=== PATIENT | female | born 1970 | race Caucasian/White ===

== ENCOUNTER 2023-12-28 22:25 | Emergency (ER) | payer OTHER ==
[~2023-12-28] VITALS: Ht 157.5 cm; Wt 51.0 kg
[~2023-12-28 22:25] MED LIST: BACTRIM DS1 TAB PO; LORTAB5 PO
[2023-12-28] MEDS ORDERED: METOPROLOL TARTRATE 25 MG/TAB PO ONE (22:50)
[2023-12-28 22:58] VITALS: BP 124/81
[2023-12-28 22:59] LABS: BASO% 0.5 % (0-3); EOS% 2.1 % (0-8); LYMPH% 37.8 % (15-41); MEAN CELL VOLUME 87.9 fL CALC (80.0-100.0); MEAN CORPUSCULAR HGB 28.6 pG CALC (26.0-32.0); MEAN CORPUSCULAR HGB CONC 32.5 g/dL CAL (32.0-36.0); MONO% 9.8 % (2-13); NEUT# 5.11 thou/uL (2.00-7.15); NEUT% 49.8 % (42-76); RED BLOOD COUNT 4.55 mill/uL (4.20-5.60)
[2023-12-28 23:00] VITALS: BP 126/82
[2023-12-28] MEDS ORDERED: LOPRESSOR25 M1 PO (23:07)
[2023-12-28] MEDS ORDERED: CRESTOR5 MG PO (23:08)
[2023-12-28] MEDS ORDERED: SLOW-MAG PO (23:09)
[2023-12-28 23:10] LABS: ALBUMIN 4.9 g/dL (3.2-5.0); ALKALINE PHOSPHATASE 66 u/l (38-126); ANION GAP 10 (6-22 (CALC)); BILIRUBIN, TOTAL 0.2 mg/dL (0.02-1.3); BUN 24 mg/dL (7-17); BUN/CREATININE RATIO 33 (12-20 (CALC)); CARBON DIOXIDE 28 mmol/l (22-30); CHLORIDE 104 mmol/l (95-108); CREATININE 0.7 mg/dL (0.5-1.0); ESTIMATED GFR 103 ML/MIN (>=90 (CALC)); POTASSIUM 3.6 mmol/l (3.5-5.1); SGOT/AST 36 u/l (14-36); SODIUM 139 mmol/l (137-146); TOTAL PROTEIN 8.4 g/dL (6.3-8.2)
[2023-12-28 23:15] VITALS: BP 111/76
[2023-12-28 23:30] VITALS: BP 113/72
[2023-12-28 23:45] VITALS: BP 105/72
[2023-12-29] VITALS: BP 118/70
[2023-12-29 00:15] VITALS: BP 127/77
[2023-12-29 00:27] VITALS: BP 127/77
== END 2023-12-29 00:27 | disposition home or self-care (01) | DRG 310 ==
LOC: ED 22:25
PROVIDERS: Family Medicine
DX: I47.10 Supraventricular tachycardia, unspecified (principal)